=== PATIENT | male | born 1955 | race Caucasian/White ===

== ENCOUNTER → 2016-06-28 | Day surgery (SDC) | payer OTHER ==
[~2016-06-28] VITALS: Ht 182.9 cm; Wt 98.4 kg
[~2016-06-28] MED LIST: DULERA 100 MCG8.8 GM INH; PROVENTIL HFA 61 INH INH; SINGULAIR10 MG PO; VITAMIN D50000 UNIT PO
== END | disposition home or self-care (01) ==
LOC: OR 07:08
PROVIDERS: Surgery
PROC: 0DBF8ZX Excision of Right Large Intestine, Via Natural or Artificial Opening Endoscopic, Diagnostic (ICD-10-PCS; 2016-06-28)
PROC: 0DBG8ZX Excision of Left Large Intestine, Via Natural or Artificial Opening Endoscopic, Diagnostic (ICD-10-PCS; principal; 2016-06-28 08:00)
DX: D12.6 Benign neoplasm of colon, unspecified (principal); J45.909 Unspecified asthma, uncomplicated; D64.9 Anemia, unspecified; E78.5 Hyperlipidemia, unspecified; Z82.49 Family history of ischemic heart disease and other diseases of the circulatory system; Z83.3 Family history of diabetes mellitus; Z79.899 Other long term (current) drug therapy; Z90.49 Acquired absence of other specified parts of digestive tract; Z98.890 Other specified postprocedural states
CPT/HCPCS: J7120

== ENCOUNTER 2020-03-11 14:34 | Emergency (ER) | payer OTHER | END 2020-03-11 20:25 | disposition home or self-care (01) | LOC: ER1 14:34 | DX: U07.1 COVID-19 (principal); J45.909 Unspecified asthma, uncomplicated; I10 Essential (primary) hypertension | CPT/HCPCS: 99284; M0239 ==

== ENCOUNTER → 2020-08-07 | Outpatient (CLI) | payer OTHER ==
[2020-08-07 09:30] LABS: HEMOGLOBIN 15.8 gm/dl (14.0-17.5); RED BLOOD COUNT 5.02 M/UL (4.20-5.50); WHITE BLOOD COUNT 6.8 K/UL (4.5-11.0)
[2020-08-07 09:48] LABS: BUN/CREATININE RATIO 14 (0-10)
[2020-08-08 08:10] LABS: VITAMIN D, 25-HYDROXY 50.8 ng/mL (30.0-100.0)
[2020-08-12 17:12] LABS: FREE TESTOSTERONE(DIRECT) 9.9 pg/mL (6.6-18.1)
== END ==
LOC: LAB 08:48
PROVIDERS: Internal Medicine
DX: E78.2 Mixed hyperlipidemia (principal); E55.9 Vitamin D deficiency, unspecified; N40.1 Benign prostatic hyperplasia with lower urinary tract symptoms
CPT/HCPCS: 36415; 80048; 80061; 80076; 84402; 84403; 84443; 85025; G0103